=== PATIENT | male | born 1965 | race Caucasian/White ===

== ENCOUNTER 2016-04-22 13:58 | Emergency (ER) | payer BC ==
[2016-04-22 14:14] VITALS: TEMP 98
[2016-04-22] MEDS ORDERED: ceFAZolin 1 GM in NS 100 ML IV ONE (15:03)
[2016-04-22] MEDS ORDERED: OXYCODONE/APAP 5/325 TAB ONE (15:14)
[2016-04-22] MEDS ORDERED: KETOROLAC 30 MG/1 ML SDV ONE (15:14)
[2016-04-22] MEDS ORDERED: KETOROLAC 30 MG/1 ML SDV IVP ONE (15:25)
[2016-04-22] MEDS ORDERED: TDAP ADULT 0.5 ML INJ (BOOSTRIX) IM ONE (15:45)
--- NOTE | 2016-04-22 15:50 | UCPHY ---
H & P Time Seen by Provider: 04/22/16 14:32 Patient Type: Established HPI/ROS: This patient was attempting to adjust the spring on his automatic carotid continuity writer any did realize how much tension the sperm was under so when the spring let loose the lag o'clock of this bring caught his left wrist and cause the wound to the distal ulnar aspect. He has some deep ache in the wound as well as laceration. The injury occurred shortly prior to arrival he reports 6/10 pain. ROS: No numbness. No difficulty moving fingers in the affected extremity. He has no other injuries. 5 point ROS is otherwise negative. Past Medical/Surgical History: Otherwise healthy Smoking Status: Never smoked Physical Exam: Physical Exam Vital signs are normal. General: No acute distress Eyes: Pupils equal and react to light. Extraocular motions are intact. Lungs: No respiratory distress. Cardiac: Brisk capillary refill is intact throughout. Pulses are 2+ and symmetric in the affected extremity. Skin: 3 cm full-thickness laceration with mild bleeding to the ulnar aspect of the left wrist a few cm proximal to the ulnar styloid with associated tenderness to the underlying bone. Neuro: Alert and oriented x3 with no sensorimotor deficits. Initial differential diagnosis: Contusion with laceration, open fracture Constitutional: Initial Vital Signs Temperature (C) 36.6 C 04/22/16 14:12 Heart Rate 72 04/22/16 14:12 Respiratory Rate 18 04/22/16 14:12 Blood Pressure 127/81 H 04/22/16 14:12 O2 Sat (%) 95 04/22/16 14:12 O2 Delivery Mode Room Air Allergies/Adverse Reactions: No Known Allergies Allergy (Verified 11/08/15 09:08) Home Medications: Medication Instructions Recorded Levothyroxine 03/03/12 Hydrocodone/APAP 5/325 [[place] 1 - 2 tab PO Q4PRN PRN #15 tab 04/22/16 5/325 (*)] Medical Decision Making - Diagnostics Imaging: Forearm x-ray reveals a cortical disruption to the distal ulna the they metaphysis remains intact there is an avulsion type comminuted fracture by my interpretation Procedures: The wound is 3 cm described physical exam. The wound was copiously irrigated with saline. The wound was explored for foreign bodies and none were found. The wound was prepped and draped in the normal sterile fashion. The wound was anesthetized using 1% lidocaine mixed 50 50 with 0.25% Marcaine-3 mm with a 27 gauge needle with good effect. The edges were reapproximated using 4 0 Ethilon- 7 running sutures with good hemostasis and cosmesis. The patient tolerated the procedure well. ED Course/Re-evaluation: IV Ancef 1 g for open fracture Toradol 30 mg IV for discomfort - Data Points Medications Given: Discontinued Medications Cefazolin Sodium 1 gm/ Sodium (Chloride) 100 mls @ 400 mls/hr IV EDNOW ONE PRN Reason: Protocol Stop: 04/22/16 15:17 Last Admin: 04/22/16 15:45 Dose: 100 mls Ketorolac Tromethamine (Toradol) 30 mg IVP EDNOW ONE Stop: 04/22/16 15:26 Last Admin: 04/22/16 15:45 Dose: 30 mg Departure - Departure Disposition: Home, Routine, Self-Care Clinical Impression: Laceration Open fracture of ulna Qualifiers: Encounter type: initial encounter Ulna location: distal Open fracture type: open type I or II Fracture morphology: unspecified fracture morphology Laterality: left Qualified Code(s): S52.602B - Unspecified fracture of lower end of left ulna, initial encounter for open fracture type I or II Condition: Good Instructions: Care For Your Stitches (ED), Wrist Fracture in Adults (ED) Additional Instructions: Diagnoses: 1. Open fracture of wrist 2. Laceration Plan: Keep the wound clean and dry for the next 2 days. Keep the splint on at all times Remove the splint in 2 days to clean the wound and then continue to clean the wound daily. Return for suture removal in 10-[address] 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
[2016-05-06 11:05] VITALS: BP 111/76; PULSE 62; RESP 16; O2SAT 93
== END 2016-05-06 11:05 | disposition home or self-care (01) ==
LOC: CED 13:58
PROC: 0HQEXZZ Repair Left Lower Arm Skin, External Approach (ICD-10-PCS; principal; 2016-04-22)
PROC: 2W3DX1Z Immobilization of Left Lower Arm using Splint (ICD-10-PCS; 2016-04-22)
DX: S52.602B Unspecified fracture of lower end of left ulna, initial encounter for open fracture type I or II (principal); Y92.015 Private garage of single-family (private) house as the place of occurrence of the external cause; W23.1XXA Caught, crushed, jammed, or pinched between stationary objects, initial encounter; Y99.8 Other external cause status; Z23 Encounter for immunization
CPT/HCPCS: 12002-PO; 73110-PO; 96365-PO; 96375-PO; 99214-PO; G0463-PO; J0690; J1885